=== PATIENT | female | born 1965 | race Two or more races ===

== ENCOUNTER → 2024-08-14 | Outpatient (CLI) | payer MEDICAID ==
[~2024-08-14] VITALS: Ht 157.5 cm; Wt 100.7 kg
--- NOTE | 2024-08-27 16:44 | DVHSR ---
APPROVED REPORT Exam: Nuclear Stress Test Indication: Chest pain Ht: 5 ft 2 in Wt: 222 lbs BSA: 2.00 m2 HR: 55 bpm BP: 117/77 mmHg BMI: 40.59 Rhythm: Bradycardia Medical History Medical History: Chest pain, HTN, Hypercholesterolemia, Diabetes, Palpitations Medications: Aspirin, Losartan, Atorvastatin, Vit D3, Mag Glycinate Allergies: No known drug allergies Stress Test Details Stress Test: Exercise stress testing was performed using a Lul protocol. HR Resting HR: 55 bpmMax Heart Rate (APMHR): 163.639131 bpm Max HR Achieved: 155 bpmTarget HR (85% APMHR): 138.480495 bpm % of APMHR: 95.09 Recovery HR: 75 bpm HR response to stress: Normal HR response to stress BP Resting BP: 117/77 mmHg Max BP: 163/80 mmHg Recovery BP: 147/77 mmHg BP response to stress: Normal blood pressure response to stress. ECG Resting ECG: Sinus Bradycardia Stress ECG: Sinus Tachycardia Arrhythmia: PACs, PVCs Recovery ECG: Sinus Rhythm Clinical Reason for Termination: Fatigue, Target HR achieved Stress Symptoms: None Exercise duration: 5 min 59 sec Exercise capacity: 7.0 METs Stress ECG Conclusion NON ISCHEMIC CLINICAL RESPONSE NON ISCHEMIC ECG RESPONSE LESS THAN 10% LIKELIHOOD FOR STRESS INDUCED ISCHEMIA EF >55% NM EXAM: Myocardial Perfusion REST/STRESS Imaging Protocol: Rest Tc-99m/Stress Tc-99m 1 day Resting Data Rest SPECT myocardial perfusion imaging was performed in supine position 30 minutes following the int ravenous injection of 10.95 mCi of Tc-99m Sestamibi. Time of rest injection: 0934 Time of rest imagin Administration Route: IV Administration Site: Right AC Exercise Stress At peak stress, the patient was injected intravenously with 29.8 mCi of Tc-99m Sestamibi. Time of stress injection: 1100 Time of stress imagin Administration Route: IV Administration Site: Right AC Heart Rate at time of stress injection: 146 bpm. Patient continued to exercise for 1 minute(s). Gated Stress SPECT was performed 15 minutes after stress injection. The images were gated to evaluate regional wall motion and calculate left ventricular ejection fracti on. Comments Cardiolite injection at 5 minutes, 7 seconds into test. Study Data Post stress, the left ventricular ejection was >55%.. Nuclear Conclusion NON ISCHEMIC CLINICAL RESPONSE NON ISCHEMIC ECG RESPONSE LESS THAN 10% LIKELIHOOD FOR STRESS INDUCED ISCHEMIA EF >55%
== END | disposition home or self-care (01) ==
LOC: Rad HDHVI 09:22
PROVIDERS: ATTEND Internal Medicine Cardiovascular Disease
DX: I49.3 Ventricular premature depolarization (principal); I49.1 Atrial premature depolarization; R00.1 Bradycardia, unspecified; R00.0 Tachycardia, unspecified; I10 Essential (primary) hypertension; E78.00 Pure hypercholesterolemia, unspecified; R00.2 Palpitations; E11.9 Type 2 diabetes mellitus without complications; Z68.41 Body mass index [BMI] 40.0-44.9, adult
CPT/HCPCS: 78452; 93017; A9500; 96374

== ENCOUNTER 2024-09-19 10:27 | Inpatient (IN) | payer MEDICAID ==
[~2024-09-19] VITALS: Ht 162.6 cm; Wt 97.6 kg
[2024-09-19 10:51] LABS: Basophils # (auto) 0.1 10 ^3/uL (0-0.2); Basophils % (auto) 0.5 % (0.0-2.0); Eosinophils # (auto) 0.3 10 ^3/uL (0-0.8); Eosinophils % (auto) 2.8 % (0.0-7.0); Hematocrit 38.4 % (36.0-46.0); Hemoglobin 12.9 g/dL (12.2-16.2); Lymphocytes # (auto) 2.2 10 ^3/uL (0.4-5.4); Lymphocytes % (auto) 19.5 % (10.0-50.0); Mean Corpuscular Hemoglobin 28.4 pg (28.0-32.0); Mean Corpuscular Hgb Conc. 33.6 g/dL (32.0-36.0); Mean Corpuscular Volume 84.4 fL (80.0-100.0); Monocytes # (auto) 0.6 10 ^3/uL (0-1.3); Neutrophils # (auto) 8.2 10 ^3/uL (1.6-8.6); Neutrophils % (auto) 72.2 % (37.0-80.0); Nucleated Red Blood Cells % 0.1 %; Platelet Count (auto) 357 10^3/uL (140-450); Red Blood Cells 4.55 10^6/uL (4.0-5.20); Red Cell Distribution Width 13.7 % (11.8-14.3); White Blood Cell 11.3 10^3/uL (4.4-10.8)
--- NOTE | 2024-09-19 10:55 | ED.PDOC ---
History of Present Illness HPI Comments 59f who is bulgarian speaking presents to the ER w/ no prior Hx associated to the c/c of SOB/Cough for the past 3 weeks. Pt reports on having yellow phlegm, N/V x1 today, clear lungs but has cough w/ inspiration. Pt's BS was 122. PMHx of HTN, High Lipids and pre-DM. SHx of Cholecystectomy and Hysterectomy. Denies chills, fever, /D, CP or no other associated symptom's, modifiers, recent injuries or sick contacts at this time. Chief Complaint: Cough Time Seen by MD: 10:45 Reviewed Notes: Nurses Notes, Medications, Allergies Allergies: Coded Allergies: No Known Drug Allergy (Verified Allergy, Unknown, 08/14/24) Information Source: Patient Mode of Arrival: Ambulatory Severity: Moderate Timing: Weeks Duration: Since onset Prehospital treatment: None Past Medical History PAST MEDICAL HISTORY: High Lipids, HTN Past Medical History (Other): Pre-DM Surgical History: Cholecystectomy, Hysterectomy Family History Family History: Reviewed,noncontributory to illness, Unknown Social History Smoker: Non-Smoker Alcohol: Denies ETOH Use Drugs: Denies Drug Use Lives In: Home Constitutional: denies: chills, diaphoresis, fatigue, fever, malaise, sweats, weakness, others EENTM: denies: blurred vision, double vision, ear bleeding, ear discharge, ear drainage, ear pain, ear ringing, eye pain, eye redness, hearing loss, mouth pain, mouth swelling, nasal discharge, nose bleeding, nose congestion, nose pain, photophobia, tearing, throat pain, throat swelling, voice changes, others Respiratory: reports: cough, shortness of breath; denies: hemoptysis, orth opnea, SOB at rest, SOB with excertion, stridor, wheezing, others Cardiovascular: denies: chest pain, dizzy spells, diaphoresis, Dyspnea on exertion, edema, irregular heart beat, left arm pain, lightheadedness, palpitations, PND, syncope, others Gastrointestinal: denies: abdomen distended, abdominal pain, blood streaked bowels, constipated, diarrhea, dysphagia, difficulty swallowing, hematemesis, melena, nausea, poor appetite, poor fluid intake, rectal bleeding, rectal pain, vomiting, others Genitourinary: denies: abnormal vagina bleeding, burning, dyspareunia, dysuria, flank pain, frequency, hematuria, incontinence, pain, , vagina discharge, urgency, others Neurological: denies: dizziness, fainting, headache, left sided numbness, left sided weakness, numbness, paresthesia, pre-existing deficit, right sided numbness, right sided weakness, seizure, speech problems, tingling, tremors, weakness, others Musculoskeletal: denies: back pain, gout, joint pain, joint swelling, muscle pain, muscle stiffness, neck pain, others Integumetry: denies: bruises, change in color, change in hair/nails, dryness, laceration, lesions, lumps, rash, wounds, others Allergic/Immunocompromised: denies: Difficulty Healing, Frequent Infections, Hives, Itching, others Hematologic/Lymphatic: denies: anemia, blood clots, easy bleeding, easy bruising, swollen glands, others Endocrine: denies: excessive hunger, excessive sweating, excessive thirst, excessive urination, flushing, intolerance to cold, intolerance to heat, unexplained weight gain, unexplained weight loss, others Psychiatric: denies: anxiety, bipolar disorder, depression, hopeless, panic disorder, schizophrenia, sleepless, suicidal, others All Other Systems: Reviewed and Negative Physical Exam General Appearance: Moderate Distress, Normal HEENT: Normal ENT Inspection, Pharynx Normal, TMs Normal Neck: Full Range of Motion, Non-Tender, Normal, Normal Inspection Respiratory: Chest Non-Tender, No Accessory Muscle Use, Other (Coarse breath sounds) Cardiovascular: No Edema, No JVD, No Murmur, No Gallop, Normal Peripheral Pulses, Regular Rate/Rhythm Breast Exam: Deferred Gastrointestinal: No Organomegaly, Non Tender, No Pulsatile Mass, Normal Bowel Sounds, Soft Genitalia: Deferred Pelvic: Deferred Rectal: Deferred Extremities: No calf tenderness, Normal capillary refill, Normal inspection, Normal range of motion, Non-tender, No pedal edema Musculoskeletal : Apperance: Normal Neurologic: Alert, earth science technical officer II-XII nml as Tested, No Motor Deficits, Normal Affect, Normal Mood, No Sensory Deficits Cerebellar Function: Normal Reflexes: Normal Skin: Dry, Normal Color, Warm Peripheral Pulses: 3+ Radial (R), 3+ Radial (L) Lymphatic: No Adenopathy Was a procedure done? Was a procedure done?: No Differential Dx Considerations may include: Pneumonitis Electrolyte imbalance X-Ray, Labs, Meds, VS Vital Signs Date Time Temp Pulse Resp B/P (MAP) Pulse Ox O2 Delivery O2 Flow Rate FiO2 09/19/24 11:20 97.9 86 16 114/74 (87) 95 97.9 09/19/24 10:53 20 95 Room Air* 0 21 09/19/24 10:38 98.8 101 20 118/75 (89) 95 98.8 Lab Test 09/19/24 11:24 09/19/24 10:29 Range/Units Urine Color Light-yellow Yellow Urine Clarity Clear Clear Urine pH 6.0 5.0-9.0 Urine Specific [place] 1.015 1.001-1.035 Urine Protein Negative Negative Urine Ketones Negative Negative Urine Blood Negative Negative /uL Urine Nitrite Negative Negative Urine Bilirubin Negative Negative Urine Urobilinogen Normal Negative mg/dL Urine Leukocyte Esterase Trace Negative /uL Urine RBC 1 0 - 4 /hpf Urine Microscopic WBC 2 0-5 /HPF Urine Squamous Epithelial Cells Few <5 /hpf Urine Bacteria None seen None Seen /hpf Urine Glucose Normal Normal mg/dL White Blood Count 11.3 H 4.4-10.8 10^3/uL Red Blood Count 4.55 4.0-5.20 10^6/uL Hemoglobin 12.9 12.2-16.2 g/dL Hematocrit 38.4 36.0-46.0 % Mean Corpuscular Volume 84.4 80.0-100.0 fL Mean Corpuscular Hemoglobin 28.4 28.0-32.0 pg Mean Corpuscular Hemoglobin Concent 33.6 32.0-36.0 g/dL Red Cell Distribution Width 13.7 11.8-14.3 % Platelet Count 357 140-450 10^3/uL Mean Platelet Volume 8.6 6.9-10.8 fL Neutrophils (%) (Auto) 72.2 37.0-80.0 % Lymphocytes (%) (Auto) 19.5 10.0-50.0 % Monocytes (%) (Auto) 5.0 0.0-12.0 % Eosinophils (%) (Auto) 2.8 0.0-7.0 % Basophils (%) (Auto) 0.5 0.0-2.0 % Neutrophils # (Auto) 8.2 1.6-8.6 10 ^3/uL Lymphocytes # (Auto) 2.2 0.4-5.4 10 ^3/uL Monocytes # (Auto) 0.6 0-1.3 10 ^3/uL Eosinophils # (Auto) 0.3 0-0.8 10 ^3/uL Basophils # (Auto) 0.1 0-0.2 10 ^3/uL Nucleated Red Blood Cells 0.1 % Sodium Level 140 136-145 mmol/L Potassium Level 3.6 3.5-5.1 mmol/L Chloride Level 105 98-107 mmol/L Carbon Dioxide Level 26 20-31 mmol/L Anion Gap 9 5-15 Blood Urea Nitrogen 12 9-23 mg/dL Creatinine 0.70 0.550-1.02 mg/dL Glomerular Filtration Rate Calc 101 >90 mL/min BUN/Creatinine Ratio 17.1 10.0-20.0 Serum Glucose 121 H 74-106 mg/dL Calcium Level 9.5 8.7-10.4 mg/dL Patient alert. Complaining of cough shortness a breath. Vitals stable. Answering questions. Unable to take deep breaths without coughing. WBC slightly elevated. Mild urinary tract infection. Establish intravenous access. Was given Rocephin. Was given azithromycin. Explained to the patient. Continue cardiac monitoring. Time of 1ST Reevaluation: 11:15 Reevaluation 1ST: Unchanged Patient Education/Counseling: Diagnosis, Treatment, Prognosis Family Education/Counseling: No Family Present Departure 1 Departure Time of Disposition: 13:38 Impression: Primary Impression: Pneumonitis Disposition: ADMITTED INPATIENT Admit to: Med Surg Condition: Guarded Critical Care Note Critical Care Time?: No Stability Stability form required: No Heart Score Heart Score: Heart Score Response (Comments) Value History N/A 0 EKG N/A 0 Age N/A 0 Risk Factors N/A 0 Troponin N/A 0 Total 0 I personally scribed for NEEL NUNEZ MD ([email or web address]) on 09/19/24 at 10:55. Electronically submitted by Chi Peralta ([email or web address]). NEEL NUNEZ MD Sep 19, 2024 10:55
[2024-09-19 11:07] LABS: Chloride 105 mmol/L (98-107); Potassium 3.6 mmol/L (3.5-5.1); Sodium 140 mmol/L (136-145)
[2024-09-19 11:08] LABS: Anion Gap 9 (5-15); Calcium 9.5 mg/dL (8.7-10.4); Carbon Dioxide 26 mmol/L (20-31)
[2024-09-19 11:13] LABS: BUN/Creatinine Ratio 17.1 (10.0-20.0); Blood Urea Nitrogen 12 mg/dL (9-23)
--- NOTE | 2024-09-19 11:13 | DVH ---
CHEST RADIOGRAPH Indication: sob Technique: Single frontal view of the chest was obtained COMPARISON: None FINDINGS: Lines and Tubes: None Lungs: Left lower lobe atelectasis or airspace disease. Pleura: No effusion. No pneumothorax. Cardiomediastinal contours: Unremarkable Bones: Unremarkable IMPRESSION: Left lower lobe atelectasis or airspace disease.
[2024-09-19 11:24] LABS: Glucose 121 mg/dL (74-106)
[2024-09-19 11:57] LABS: Urine Bacteria None Seen /hpf (None Seen)
[2024-09-19 12:30] LABS: Urine Blood Negative /uL (Negative); Urine Clarity Clear (Clear); Urine Color Light-Yellow (Yellow); Urine Protein, UAD Negative (Negative); Urine Specific Gravity 1.015 (1.001-1.035); Urine Squamous Epithelial Cell FEW /hpf (<5); Urine Urobilinogen Normal (Negative); Urine WBC 2 /HPF (0-5)
[2024-09-19] MEDS: SODIUM CHLORIDE 0.9% 1,000 ML IV ONE (13:45)
[2024-09-19] MEDS: cefTRIAXone 1GM/50ML D5W 50 ML IV ONE (13:45)
[2024-09-19 14:29] VITALS: PULSE 94; RESP 20; O2SAT 95
[2024-09-19] MEDS: ONDANSETRON HCL 4 MG/2 ML VIAL IV ONE (15:45)
[2024-09-19] MEDS: MORPHINE SULFATE INJ 2 MG/ml SYRG IV ONE (15:45)
[2024-09-19] MEDS: AZITHROMYCIN 500MG/ 250ML 250 ML IV ONE (18:32)
[2024-09-19] MEDS ORDERED: ONDANSETRON HCL 4 MG/2 ML VIAL IV PRN (18:45)
[2024-09-19 20:02] VITALS: BP 111/74; PULSE 72; RESP 18; TEMP 98; O2SAT 94; O2SAT 95
[2024-09-19 21:22] VITALS: BP 114/67; PULSE 89; RESP 18; RESP 20; TEMP 99; O2SAT 94
[2024-09-19] MEDS ORDERED: ASPI1TAB20 PO (22:28)
[2024-09-19] MEDS ORDERED: LOSA-534 PO (22:28)
[2024-09-19] MEDS ORDERED: SEMA2INJ3 SC (22:28)
[2024-09-19] MEDS ORDERED: ATOR40TA52 PO (22:28)
[2024-09-19] MEDS: ACETAMINOPHEN 325 MG TAB PO PRN (22:34)
--- NOTE | 2024-09-19 23:03 | DVHHP2 ---
History of Present Illness Reason for Visit: Shortness for breath History of Present Illness 59-year-old female presents for evaluation of shortness for breath. Patient reports a two week history of worsening shortness for breath with associated cough. Patient denies chest pain. She states not being able to take deep breat hs. Reports intermittent chills. No other acute complaints reported. Review of Systems Review of Systems Review of systems are currently negative otherwise addressed in HPI. Allergies: Coded Allergies: No Known Drug Allergy (Verified Allergy, Unknown, 08/14/24) Medications Current Medications Medications Dose Ordered Sig/Manuel Route Start Time Stop Time Status Last Admin Dose Admin Albuterol 2.5 mg Q6HPRN PRN NEB 09/19/24 18:45 Azithromycin 250 ml @ 125 mls/hr DAILY IV 09/20/24 10:00 Ceftriaxone Sodium 50 ml @ 100 mls/hr DAILY@09 IV 09/20/24 09:00 Ondansetron HCl 4 mg Q4HP PRN IV 09/19/24 18:45 Acetaminophen 650 mg Q6HP PRN PO 09/19/24 18:45 09/19/24 22:34 650 MG Exam Vital Signs Vital Signs Date Time Temp Pulse Resp B/P (MAP) Pulse Ox O2 Delivery O2 Flow Rate FiO2 09/19/24 22:34 99.0 09/19/24 21:22 89 20 114/67 (83) 94 09/19/24 20:02 0.0 09/19/24 20:02 Room Air* 21 Exam Gen: 59-year-old female in mild distress. Skin: Warm, dry, normal color and texture, no rash. HEENT: Normocephalic atraumatic, mucous membranes moist and pink. Neck: Cervical and supraclavicular nodes normal without enlargement, trachea is midline, thyroid gland is normal without masses. Pulmonary: Bilateral rhonchi Cardiac: Regular rate and rhythm. No murmur Abdomen: Soft, nontender, nondistended, bowel sounds present all 4 quadrants, no guarding, no rigidity, no organomegaly. Extremities: No cyanosis, clubbing, no edema Neuro: Cranial nerves II through XII grossly intact, normal affect and speech, no focal motor deficits. Labs/Xrays ORDERING PHYSICIAN: NEEL NUNEZ MD PROCEDURE(s): CXRP - CHEST PORTABLE REASON: sob ORDER NUMBER(s): [id number], ACCESSION NUMBER(s): [id number] CHEST RADIOGRAPH Indication: sob Technique: Single frontal view of the chest was obtained COMPARISON: None FINDINGS: Lines and Tubes: None Lungs: Left lower lobe atelectasis or airspace disease. Pleura: No effusion. No pneumothorax. Cardiomediastinal contours: Unremarkable Bones: Unremarkable IMPRESSION: Left lower lobe atelectasis or airspace disease. Labs Test 09/19/24 11:24 09/19/24 10:29 Range/Units Urine Color Light-yellow Yellow Urine Clarity Clear Clear Urine pH 6.0 5.0-9.0 Urine Specific [place] 1.015 1.001-1.035 Urine Protein Negative Negative Urine Ketones Negative Negative Urine Blood Negative Negative /uL Urine Nitrite Negative Negative Urine Bilirubin Negative Negative Urine Urobilinogen Normal Negative mg/dL Urine Leukocyte Esterase Trace Negative /uL Urine RBC 1 0 - 4 /hpf Urine Microscopic WBC 2 0-5 /HPF Urine Squamous Epithelial Cells Few <5 /hpf Urine Bacteria None seen None Seen /hpf Urine Glucose Normal Normal mg/dL White Blood Count 11.3 H 4.4-10.8 10^3/uL Red Blood Count 4.55 4.0-5.20 10^6/uL Hemoglobin 12.9 12.2-16.2 g/dL Hematocrit 38.4 36.0-46.0 % Mean Corpuscular Volume 84.4 80.0-100.0 fL Mean Corpuscular Hemoglobin 28.4 28.0-32.0 pg Mean Corpuscular Hemoglobin Concent 33.6 32.0-36.0 g/dL Red Cell Distribution Width 13.7 11.8-14.3 % Platelet Count 357 140-450 10^3/uL Mean Platelet Volume 8.6 6.9-10.8 fL Neutrophils (%) (Auto) 72.2 37.0-80.0 % Lymphocytes (%) (Auto) 19.5 10.0-50.0 % Monocytes (%) (Auto) 5.0 0.0-12.0 % Eosinophils (%) (Auto) 2.8 0.0-7.0 % Basophils (%) (Auto) 0.5 0.0-2.0 % Neutrophils # (Auto) 8.2 1.6-8.6 10 ^3/uL Lymphocytes # (Auto) 2.2 0.4-5.4 10 ^3/uL Monocytes # (Auto) 0.6 0-1.3 10 ^3/uL Eosinophils # (Auto) 0.3 0-0.8 10 ^3/uL Basophils # (Auto) 0.1 0-0.2 10 ^3/uL Nucleated Red Blood Cells 0.1 % Sodium Level 140 136-145 mmol/L Potassium Level 3.6 3.5-5.1 mmol/L Chloride Level 105 98-107 mmol/L Carbon Dioxide Level 26 20-31 mmol/L Anion Gap 9 5-15 Blood Urea Nitrogen 12 9-23 mg/dL Creatinine 0.70 0.550-1.02 mg/dL Glomerular Filtration Rate Calc 101 >90 mL/min BUN/Creatinine Ratio 17.1 10.0-20.0 Serum Glucose 121 H 74-106 mg/dL Calcium Level 9.5 8.7-10.4 mg/dL Assessment/Plan Assessment/Plan Assessment Community-acquired pneumonia Hypertension Plan Admit the patient to Med surge to the hospitalist Rocephin/azithromycin Med nebs Continue treatment per orders. Plan discussed with: Patient My Orders Orders - YAIMA ABREU Procedure Category Date Status Time Albuterol Medneb PHA 09/19/24 In Process (Ventolin Medneb) 18:45 Azithromycin 500mg/ PHA 09/20/24 In Process 250ml (Zithromax 50 10:00 Ceftriaxone 1gm/50ml PHA 09/20/24 In Process D5w (Rocephin) 09:00 Basic Metabolic Panel LAB 09/20/24 Verified 04:00 Admit ADMIT 09/19/24 Transmitted 18:40 Ondansetron Hcl PHA 09/19/24 In Process (Zofran) 18:45 Complete Blood Count LAB 09/20/24 Verified 04:00 Condition: Stable CHAUNCEY 09/19/24 In Process 18:40 Acetaminophen Tablet PHA 09/19/24 In Process (Tylenol Tablet) 18:45 Bedrest With Bathroom CHAUNCEY 09/19/24 In Process Privileg 18:40 Date of Service: Sep 19, 2024 Billing Provider: YAIMA ABREU Common Visit Codes: [id number] INP/OBS CARE (HIGH) YAIMA ABREU [facility] Sep 19, 2024 23:03
[2024-09-20] VITALS (12 sets, daily range): BP systolic 104–129; BP diastolic 52–74; PULSE 71–90; RESP 16–22; TEMP 98.3–98.8; O2SAT 92–100
[2024-09-20] MEDS: ALBUTEROL SULF 2.5 MG/0.5ML(0.5%) NEB SOLN NEB PRN (02:15)
[2024-09-20 07:07] LABS: Basophils # (auto) 0 10 ^3/uL (0-0.2); Basophils % (auto) 0.4 % (0.0-2.0); Eosinophils # (auto) 0.3 10 ^3/uL (0-0.8); Hematocrit 34.4 % (36.0-46.0); Hemoglobin 11.5 g/dL (12.2-16.2); Lymphocytes # (auto) 1.8 10 ^3/uL (0.4-5.4); Lymphocytes % (auto) 19.2 % (10.0-50.0); Mean Corpuscular Hgb Conc. 33.5 g/dL (32.0-36.0); Mean Corpuscular Volume 83.6 fL (80.0-100.0); Monocytes # (auto) 0.7 10 ^3/uL (0-1.3); Neutrophils # (auto) 6.4 10 ^3/uL (1.6-8.6); Neutrophils % (auto) 69.4 % (37.0-80.0); Platelet Count (auto) 301 10^3/uL (140-450); Red Blood Cells 4.12 10^6/uL (4.0-5.20); Red Cell Distribution Width 13.7 % (11.8-14.3); White Blood Cell 9.3 10^3/uL (4.4-10.8)
[2024-09-20 07:14] LABS: Chloride 106 mmol/L (98-107); Potassium 3.6 mmol/L (3.5-5.1); Sodium 140 mmol/L (136-145)
[2024-09-20 07:15] LABS: Anion Gap 6 (5-15); Calcium 9.3 mg/dL (8.7-10.4); Carbon Dioxide 28 mmol/L (20-31)
[2024-09-20 07:20] LABS: BUN/Creatinine Ratio 20.9 (10.0-20.0); Blood Urea Nitrogen 14 mg/dL (9-23); Glucose 90 mg/dL (74-106)
[2024-09-20] MEDS: cefTRIAXone 1GM/50ML D5W 50 ML IV SCH (08:18)
[2024-09-20] MEDS: AZITHROMYCIN 500MG/ 250ML 250 ML IV SCH (09:18)
--- NOTE | 2024-09-20 12:44 | DVHPN2 ---
Subjective The patient is seen and examined at bedside. The patient complained of shortness a breath. Reviewed: Care Plan, H&P, Labs, Medications, Previous Orders, Radiology Changes from previous H/P or p: No Changes Objective Vitals Vital Signs Date Time Temp Pulse Resp B/P (MAP) Pulse Ox O2 Delivery O2 Flow Rate FiO2 09/20/24 12:30 98.6 71 18 120/62 (81) 95 98.6 09/20/24 10:10 Nasal Cannula 2.0 09/20/24 10:10 28 Intake/Output Intake and Output 09/20/24 07:00 Intake Total 1570 ml Output Total 100 ml Balance 1470 ml Intake Oral 470 ml IV Total 1100 ml Output Urine Total 100 ml # Voids 2 General Appearance: Alert, Oriented X3, Cooperative, No acute distress HEENT: Atraumatic, PERRLA, EOMI, Mucous membr. moist/pink Neck: Supple Lungs: Clear to auscultation, Normal air movement Cardiovascular: Regular rate, Normal S1, Normal S2, No murmurs, Gallops, Rubs Abdomen: Normal bowel sounds, Soft, No tenderness Neuro: Cranial nerves 3-12 NL Psych/Mental Status: Mental status NL Medications Current Medications Medications Dose Ordered Sig/Manuel Route Start Time Stop Time Status Last Admin Dose Admin Albuterol 2.5 mg Q6HPRN PRN NEB 09/19/24 18:45 09/20/24 02:15 2.5 MG Azithromycin 250 ml @ 125 mls/hr DAILY IV 09/20/24 10:00 09/20/24 09:18 125 MLS/HR Ceftriaxone Sodium 50 ml @ 100 mls/hr DAILY@09 IV 09/20/24 09:00 09/20/24 08:18 100 MLS/HR Ondansetron HCl 4 mg Q4HP PRN IV 09/19/24 18:45 Acetaminophen 650 mg Q6HP PRN PO 09/19/24 18:45 09/20/24 07:58 650 MG Laboratory Results Laboratory Tests 09/20/24 06:31 Chemistry Test 09/20/24 06:31 Calcium Level 9.3 mg/dL (8.7-10.4) Urinalysis Test 09/19/24 11:24 Urine Color Light-yellow (Yellow) Urine Clarity Clear (Clear) Urine pH 6.0 (5.0-9.0) Urine Specific [place] 1.015 (1.001-1.035) Urine Protein Negative (Negative) Urine Ketones Negative (Negative) Urine Blood Negative /uL (Negative) Urine Nitrite Negative (Negative) Urine Bilirubin Negative (Negative) Urine Urobilinogen Normal mg/dL (Negative) Urine Leukocyte Esterase Trace /uL (Negative) Urine RBC 1 /hpf (0 - 4) Urine Microscopic WBC 2 /HPF (0-5) Urine Squamous Epithelial Cells Few /hpf (<5) Urine Bacteria None seen /hpf (None Seen) Urine Glucose Normal mg/dL (Normal) Labs and/or images reviewed: Labs reviewed by me Assessment/Plan Assessment/Plan Community-acquired pneumonia Hypertension Continuing current management with IV antibiotic Rocephin and Zithromax. Continuing with nebulizer. Continuing with hypertensive medication. This medical document was created using an electronic medical record system with [employer] computerized dictation system. Although this document has been carefully reviewed, there may still be some phonetic and typographical errors. These areas are purely typographical due to imperfections of the software programs, and do not reflect any compromise in the patient's medical care. Plan discussed with: Patient Date of Service: Sep 20, 2024 Billing Provider: MARLYS HARRY MD Common Visit Codes: [id number] INP/OBS CARE(HIGH) MARLYS HARRY MD Sep 20, 2024 12:44
[2024-09-21] VITALS (12 sets, daily range): BP systolic 109–137; BP diastolic 56–76; PULSE 70–89; RESP 18–20; TEMP 98.4–99.2; O2SAT 93–97
--- NOTE | 2024-09-21 11:36 | DVHPN2 ---
Subjective The patient seen and examined at bedside. Still complaint of shortness a breath and chest pain due to cough. Reviewed: Care Plan, H&P, Labs, Medications, Previous Orders, Radiology Changes from previous H/P or p: No Changes Objective Vitals Vital Signs Date Time Temp Pulse Resp B/P (MAP) Pulse Ox O2 Delivery O2 Flow Rate FiO2 09/21/24 11:17 98.7 09/21/24 09:00 70 19 116/65 (82) 95 09/21/24 06:59 Nasal Cannula* 2 28 Intake/Output Intake and Output 09/21/24 07:00 Intake Total 1370 ml Balance 1370 ml Intake Oral 1370 ml # Voids 5 General Appearance: Alert, Oriented X3, Cooperative, No acute distress HEENT: Atraumatic, PERRLA, EOMI, Mucous membr. moist/pink Neck: Supple Lungs: Clear to auscultation, Normal air movement Cardiovascular: Regular rate, Normal S1, Normal S2, No murmurs, Gallops, Rubs Abdomen: Normal bowel sounds, Soft, No tenderness Neuro: Cranial nerves 3-12 NL Psych/Mental Status: Mental status NL Medications Current Medications Medications Dose Ordered Sig/Manuel Route Start Time Stop Time Status Last Admin Dose Admin Albuterol 2.5 mg Q6HPRN PRN NEB 09/19/24 18:45 09/20/24 02:15 2.5 MG Azithromycin 250 ml @ 125 mls/hr DAILY IV 09/20/24 10:00 09/21/24 09:25 125 MLS/HR Ceftriaxone Sodium 50 ml @ 100 mls/hr DAILY@09 IV 09/20/24 09:00 09/21/24 09:25 100 MLS/HR Ondansetron HCl 4 mg Q4HP PRN IV 09/19/24 18:45 Acetaminophen 650 mg Q6HP PRN PO 09/19/24 18:45 09/21/24 11:17 650 MG Laboratory Results Laboratory Tests 09/20/24 06:31 Urinalysis Test 09/19/24 11:24 Urine Color Light-yellow (Yellow) Urine Clarity Clear (Clear) Urine pH 6.0 (5.0-9.0) Urine Specific [place] 1.015 (1.001-1.035) Urine Protein Negative (Negative) Urine Ketones Negative (Negative) Urine Blood Negative /uL (Negative) Urine Nitrite Negative (Negative) Urine Bilirubin Negative (Negative) Urine Urobilinogen Normal mg/dL (Negative) Urine Leukocyte Esterase Trace /uL (Negative) Urine RBC 1 /hpf (0 - 4) Urine Microscopic WBC 2 /HPF (0-5) Urine Squamous Epithelial Cells Few /hpf (<5) Urine Bacteria None seen /hpf (None Seen) Urine Glucose Normal mg/dL (Normal) Labs and/or images reviewed: Labs reviewed by me Assessment/Plan Assessment/Plan Community-acquired pneumonia with possible Gram-positive bacteria pneumonia Hypertension Continuing current management with IV antibiotic Rocephin and Zithromax. Continuing with nebulizer. Continuing with hypertensive medication. This medical document was created using an electronic medical record system with [employer] computerized dictation system. Although this document has been carefully reviewed, there may still be some phonetic and typographical errors. These areas are purely typographical due to imperfections of the software programs, and do not reflect any compromise in the patient's medical care. Plan discussed with: Patient Date of Service: Sep 21, 2024 Billing Provider: MARLYS HARRY MD Common Visit Codes: [id number] INP/OBS CARE(HIGH) MARLYS HARRY MD Sep 21, 2024 11:36
[2024-09-21] MEDS: guaiFENesin-DM 100/10mg/5ml SYR PO PRN (17:17)
[2024-09-22] VITALS (8 sets, daily range): BP systolic 105–115; BP diastolic 63–69; PULSE 74–85; RESP 17–22; TEMP 98.1–98.9; O2SAT 90–95
--- NOTE | 2024-09-22 14:03 | DVHPN2 ---
Subjective The patient seen and examined at bedside. Still complaint of shortness a breath and chest pain due to cough. Reviewed: Care Plan, H&P, Labs, Medications, Previous Orders, Radiology Changes from previous H/P or p: No Changes Objective Vitals Vital Signs Date Time Temp Pulse Resp B/P (MAP) Pulse Ox O2 Delivery O2 Flow Rate FiO2 09/22/24 10:00 Nasal Cannula 2.0 09/22/24 10:00 28 09/22/24 09:00 98.1 80 22 110/64 (79) 93 98.1 Intake/Output Intake and Output 09/22/24 07:00 Intake Total 1230 ml Balance 1230 ml Intake Oral 930 ml IV Total 300 ml # Voids 3 # Bowel Movements 1 General Appearance: Alert, Oriented X3, Cooperative, No acute distress HEENT: Atraumatic, PERRLA, EOMI, Mucous membr. moist/pink Neck: Supple Lungs: Clear to auscultation, Normal air movement Cardiovascular: Regular rate, Normal S1, Normal S2, No murmurs, Gallops, Rubs Abdomen: Normal bowel sounds, Soft, No tenderness Neuro: Cranial nerves 3-12 NL Psych/Mental Status: Mental status NL Medications Current Medications Medications Dose Ordered Sig/Manuel Route Start Time Stop Time Status Last Admin Dose Admin Azithromycin 250 ml @ 125 mls/hr DAILY IV 09/20/24 10:00 09/22/24 09:32 125 MLS/HR Ceftriaxone Sodium 50 ml @ 100 mls/hr DAILY@09 IV 09/20/24 09:00 09/22/24 08:13 100 MLS/HR Ondansetron HCl 4 mg Q4HP PRN IV 09/19/24 18:45 Acetaminophen 650 mg Q6HP PRN PO 09/19/24 18:45 09/22/24 13:45 650 MG Guaifenesin/ Dextromethorphan 10 ml Q4HP PRN PO 09/21/24 17:00 09/22/24 13:45 10 ML Laboratory Results Laboratory Tests 09/20/24 06:31 Urinalysis Test 09/19/24 11:24 Urine Color Light-yellow (Yellow) Urine Clarity Clear (Clear) Urine pH 6.0 (5.0-9.0) Urine Specific [place] 1.015 (1.001-1.035) Urine Protein Negative (Negative) Urine Ketones Negative (Negative) Urine Blood Negative /uL (Negative) Urine Nitrite Negative (Negative) Urine Bilirubin Negative (Negative) Urine Urobilinogen Normal mg/dL (Negative) Urine Leukocyte Esterase Trace /uL (Negative) Urine RBC 1 /hpf (0 - 4) Urine Microscopic WBC 2 /HPF (0-5) Urine Squamous Epithelial Cells Few /hpf (<5) Urine Bacteria None seen /hpf (None Seen) Urine Glucose Normal mg/dL (Normal) Assessment/Plan Assessment/Plan Community-acquired pneumonia with possible Gram-positive bacteria pneumonia Hypertension Continuing current management with IV antibiotic Rocephin and Zithromax. Continuing with nebulizer. Continuing with hypertensive medication. This medical document was created using an electronic medical record system with [employer] computerized dictation system. Although this document has been carefully reviewed, there may still be some phonetic and typographical errors. These areas are purely typographical due to imperfections of the software programs, and do not reflect any compromise in the patient's medical care. Plan discussed with: Patient My Orders Orders - MARLYS HARRY MD Procedure Category Date Status Time Guaifenesin-Dextromet PHA 09/21/24 In Process Liquid (Robitussin 17:00 Date of Service: Sep 22, 2024 Billing Provider: MARLYS HARRY MD Common Visit Codes: [id number] INP/OBS CARE(HIGH) MARLYS HARRY MD Sep 22, 2024 14:03
[2024-09-23 01:00] VITALS: BP 117/75; PULSE 88; RESP 18; TEMP 97.8; O2SAT 93
[2024-09-23 05:00] VITALS: BP 117/72; PULSE 84; RESP 18; TEMP 98.1; O2SAT 92
[2024-09-23 08:58] VITALS: BP 115/72; PULSE 85; RESP 18; TEMP 98; O2SAT 90
[2024-09-23 10:00] VITALS: O2SAT 90
[2024-09-23 12:35] VITALS: BP 105/62; PULSE 71; RESP 16; TEMP 98.2; O2SAT 97
[2024-09-23] MEDS ORDERED: METH4PAK PO (15:29)
[2024-09-23] MEDS ORDERED: AZIT-185 PO (15:29)
[2024-09-23] MEDS ORDERED: BENZ200C64 PO (15:29)
[2024-09-23] MEDS ORDERED: ALBUAER3 IN (15:29)
--- NOTE | 2024-09-25 09:45 | DVHDS2 ---
Discharge Summary Date of Admission Sep 19, 2024 at 18:40 Date of Discharge: Sep 23, 2024 Admitting Diagnosis Community-acquired pneumonia with possible Gram-positive bacteria pneumonia Hypertension Labs/Diagnostic Data: Laboratory Results Test 09/20/24 06:31 09/19/24 11:24 White Blood Count 9.3 10^3/uL (4.4-10.8) Red Blood Count 4.12 10^6/uL (4.0-5.20) Hemoglobin 11.5 g/dL (12.2-16.2) Hematocrit 34.4 % (36.0-46.0) Mean Corpuscular Volume 83.6 fL (80.0-100.0) Mean Corpuscular Hemoglobin 28.0 pg (28.0-32.0) Mean Corpuscular Hemoglobin Concent 33.5 g/dL (32.0-36.0) Red Cell Distribution Width 13.7 % (11.8-14.3) Platelet Count 301 10^3/uL (140-450) Mean Platelet Volume 8.6 fL (6.9-10.8) Neutrophils (%) (Auto) 69.4 % (37.0-80.0) Lymphocytes (%) (Auto) 19.2 % (10.0-50.0) Monocytes (%) (Auto) 8.0 % (0.0-12.0) Eosinophils (%) (Auto) 3.0 % (0.0-7.0) Basophils (%) (Auto) 0.4 % (0.0-2.0) Neutrophils # (Auto) 6.4 10 ^3/uL (1.6-8.6) Lymphocytes # (Auto) 1.8 10 ^3/uL (0.4-5.4) Monocytes # (Auto) 0.7 10 ^3/uL (0-1.3) Eosinophils # (Auto) 0.3 10 ^3/uL (0-0.8) Basophils # (Auto) 0 10 ^3/uL (0-0.2) Nucleated Red Blood Cells 0.0 % Sodium Level 140 mmol/L (136-145) Potassium Level 3.6 mmol/L (3.5-5.1) Chloride Level 106 mmol/L (98-107) Carbon Dioxide Level 28 mmol/L (20-31) Anion Gap 6 (5-15) Blood Urea Nitrogen 14 mg/dL (9-23) Creatinine 0.67 mg/dL (0.550-1.02) Glomerular Filtration Rate Calc 102 mL/min (>90) BUN/Creatinine Ratio 20.9 (10.0-20.0) Serum Glucose 90 mg/dL (74-106) Calcium Level 9.3 mg/dL (8.7-10.4) Urine Color Light-yellow (Yellow) Urine Clarity Clear (Clear) Urine pH 6.0 (5.0-9.0) Urine Specific [place] 1.015 (1.001-1.035) Urine Protein Negative (Negative) Urine Ketones Negative (Negative) Urine Blood Negative /uL (Negative) Urine Nitrite Negative (Negative) Urine Bilirubin Negative (Negative) Urine Urobilinogen Normal mg/dL (Negative) Urine Leukocyte Esterase Trace /uL (Negative) Urine RBC 1 /hpf (0 - 4) Urine Microscopic WBC 2 /HPF (0-5) Urine Squamous Epithelial Cells Few /hpf (<5) Urine Bacteria None seen /hpf (None Seen) Urine Glucose Normal mg/dL (Normal) Other Laboratory Tests 09/20/24 06:31 Brief Hx & Hospital Course: This is a 59 years old female came into emergency department because severe shortness for breath. Patient had two weeks' history of worsening shortness for breath with associated cough. Patient denied any chest pain, denied any fever however does have intermittent chills. The patient was admitted. The patient was put on IV antibiotic with Rocephin and Zithromax. The patient was put on 2 L of oxygen nasal cannula to keep the saturation oxygen above 92%. The patient subsequently improved. The patient also had DuoNeb q.4 p.r.n.. Patient able to weaned off oxygen and saturation oxygen maintained above 92%. So I am going to discharge her home. Advised her to follow up with primary care physician 1-2 weeks. Physical exam: HEENT: Normocephalic atraumatic pupils equal react to light and accommodation. Extraocular muscles intact, conjunctiva pink, oropharynx moist, no thrush, no exudate. Lymphatic: No lymphadenopathy Cardiovascular exam: S1, S2 was heard. No murmurs, rubs, gallops Lung: Clear on auscultation bilaterally, no wheeze, rale, rhonchi. GI: Abdominal soft, nondistended, nontenderness, positive bowel sounds. Extremity: No crepitus, cyanosis, edema. Pedal pulses present bilateral. Full range of motion. Skin: Normal turgor, no rash. Psych: Alert, oriented x3. Neurology: No focal deficits, cranial nerve II to XII grossly intact. This medical document was created using an electronic medical record system with [employer] computerized dictation system. Although this document has been carefully reviewed, there may still be some phonetic and typographical errors. These areas are purely typographical due to imperfections of the software programs, and do not reflect any compromise in the patient's medical care. Condition at Discharge: Stable Final Diagnosis/Problems List Community-acquired pneumonia with possible Gram-positive bacteria pneumonia Hypertension Discharge Disposition: Home Discharge Instruct/Medications Diet: Regular Activity: No Restrictions, As Tolerated Follow Up/Referral: pcp 1-2 weeks Medications: zpak until finish medrodose laisha until finish albuterol INH q8hPRN resume home meds Discharge Statement: "Patient was advised to return to the ER or call 911 if any headaches, dizziness, shortness of breath, chest pain, abdominal pain, bleeding, fevers, or worsening of medical condition. Patient was counseled about treatment plan, medications, possible side effects, patientverbalized understanding. All questions were answered to the best of my ability. This discharge took greater then 30 minutes in planning, reviewing documentation, counseling the patient, and discussing with other team members." ASSESSMENT ASSESSMENT Assessment pna Date of Service: Sep 23, 2024 Billing Provider: MARLYS HARRY MD Common Visit Codes: 64853-SVF/OBS DISCH DAY >30min MARLYS HARRY MD Sep 25, 2024 09:45
== END 2024-09-23 16:49 | disposition home or self-care (01) | DRG 139 ==
LOC: ER 10:27 → OVERFLOW 18:40 → WEST WING 09-20 13:53
PROVIDERS: ADMIT Internal Medicine; ATTEND Internal Medicine
DX: J15.9 Unspecified bacterial pneumonia (principal); J96.00 Acute respiratory failure, unspecified whether with hypoxia or hypercapnia; I10 Essential (primary) hypertension; Z90.710 Acquired absence of both cervix and uterus; Z90.49 Acquired absence of other specified parts of digestive tract
CPT/HCPCS: 36415; 71045; 80048; 81001; 85025; 94640; G0378; J2405